=== PATIENT | male | born 1965 | race Caucasian/White ===

== ENCOUNTER 2019-06-17 21:33 | Inpatient (IN) | payer MEDICARE, MEDICAID ==
[~2019-06-17] VITALS: Ht 152.4 cm; Wt 75.7 kg
[2019-06-17 21:45] VITALS: BP 120/89
[2019-06-17] MEDS ORDERED: LISINOPRIL-HCT1 EACH PO (21:53)
[2019-06-17 22:25] LABS: ABSOLUTE EOSINOPHILS 0.1 thou/uL (0.0-0.7); ABSOLUTE MONOCYTES 0.3 thou/uL (0.0-1.2); ABSOLUTE NEUTROPHILS 2.1 thou/uL (1.6-8.1); BASOPHILS 0.6 %; EOSINOPHILS 1.5 %; HEMOGLOBIN 10.2 gm/dL (14.0-18.0); MCH 30.6 pg (26.0-34.0); MCV 90.2 fL (80.0-100.0); MONOCYTES 9.2 %; MPV 7.8 fl. (7.2-11.1); NUCLEATED RBCS 0 /100WBC; PLATELET COUNT* 106 thou/uL (150-400); POLYS 60.7 %; RBC 3.33 mil/uL (4.50-6.00); RDW-CV 17.3 % (10.5-14.5); WBC 3.5 thou/uL (4.0-11.0)
[2019-06-17 22:31] LABS: URINE BILIRUBIN NEGATIVE (Negative); URINE BLOOD NEGATIVE (Negative); URINE CLARITY CLEAR; URINE COLOR YELLOW; URINE GLUCOSE-RANDOM NEGATIVE (Negative); URINE KETONES NEGATIVE (Negative); URINE LEUKOCYTES-REFLEX 1+ (Negative); URINE NITRITE-REFLEX NEGATIVE (Negative); URINE PROTEIN NEGATIVE (Negative); URINE SPECIFIC GRAVITY <= 1.005 (1.005-1.030); URINE UROBILINOGEN 0.2 E.U./dl (0.2-1.0)
[2019-06-17 22:35] LABS: CALCIUM 9.3 mg/dL (8.5-10.1); CREATININE 0.8 mg/dL (0.6-1.3); POTASSIUM 4.1 mmol/L (3.5-5.1)
[2019-06-17 22:39] LABS: ALBUMIN 3.4 g/dL (3.4-5.0); AMP/METHAMP Negative (Negative); BARBITURATES Negative (Negative); BENZODIAZEPINES Negative (Negative); COCAINE Negative (Negative); METHADONE Negative (Negative); OPIATES Negative (Negative); PCP Negative (Negative); THC Negative (Negative); TOTAL BILIRUBIN 0.3 mg/dL (<0.1-1.0)
[2019-06-17 22:46] LABS: CASTS None Seen /LPF (None Seen); MUCUS None Seen strn/LPF (None Seen); SQUAMOUS 0-3 Few /LPF (0-3)
[2019-06-17 22:47] LABS: BACTERIA-REFLEX 1-9 Few /HPF (None Seen); CRYSTALS None Seen /LPF (None Seen); URINE RBC None Seen /HPF (0-2); URINE WBC-REFLEX 0-5 Rare /HPF (0-5)
[2019-06-18 03:56] VITALS: BP 102/60
--- NOTE | 2019-06-18 07:50 | NUR ---
GI RETURNED PHONE CALL. NO NEW ORDERS, KEEP PT NPO AT THIS TIME.
[2019-06-18 08:38] LABS: HEMATOCRIT 26.8 % (42.0-52.0)
[2019-06-18 08:45] LABS: CALCIUM 8.6 mg/dL (8.5-10.1); CREATININE 0.8 mg/dL (0.6-1.3); MAGNESIUM 1.8 mg/dL (1.8-2.4); POTASSIUM 4.2 mmol/L (3.5-5.1)
--- NOTE | 2019-06-18 12:01 | NUR ---
PT RECIEVED BY SANDY ABDALLA PREOP NURSE WITH BLOOD TRANSFUSING. PT STABLE WITH ALL VITAL SIGNS WITHIN NORMAL LIMITS. BLOOD TRANSFUSING AT 175ML/HR AND PT TOLERATING WELL. IV SITE PATENT. SANDY BUTLER ASSUMES TRANSFUSION AND VERBALIZES UNDERSTANDING OF REPORT.
[2019-06-18 12:07] VITALS: BP 124/66
[2019-06-18 16:35] LABS: HEMATOCRIT 30.3 % (42.0-52.0); HEMOGLOBIN 10.2 gm/dL (14.0-18.0)
[2019-06-18 16:48] LABS: APTT 24.5 Seconds (25.0-31.3); INR 1.1; PROTIME 10.9 Seconds (9.20-11.50)
--- NOTE | 2019-06-18 18:16 | EKG ---
[place] [address] ELECTROCARDIOGRAM REPORT Name: HARJEET PENA Room: [place] [address] ADM IN [facility]#: [id number] Admission: 06/18/19 Attend Phys: Jennifer Stokes Discharge: Date of : 69 Report #: [id number] THIS REPORT FOR: //name// [facility] ED Test Date: 2019-06-18 Test Time: 12:02:01 Pat Name: ANNARITESH JEAN Department: Room: [place] [address] Gender: M Scrap Dealer: : 1965 Requested By: Harjeet Welsh Order Number: [id number] MD: Kb Mckeon Measurements Intervals [place] Rate: 70 P: HI: QRS: 4 QRSD: 97 T: 62 QT: 356 QTc: 385 Interpretive Statements Atrial fibrillation Probable left ventricular hypertrophy, by voltage Anterior Q waves, possibly due to LVH No previous ECG available for comparison Electronically Signed On 06-18-2019 18:15:57 CDT by Kb Mckeon [email or web address] <ELECTRONICALLY SIGNED> By: Kb Mckeon MD, [facility] 06/18/19 181 01 01 Kb Mckeon MD, FAC /EPI
[2019-06-18 20:45] VITALS: BP 134/85
[2019-06-19] VITALS: BP 142/78
[2019-06-19 04:00] VITALS: BP 116/49
--- NOTE | 2019-06-19 06:04 | NUR ---
A&O X 4. VITALS STABLE. PT ON 1L O2 BY NC. PAIN CONTROLLED BY FENTANYL AND OXY IR. NO C/O NAUSEA OR VOMITING. IV FLUIDS RUNNING ORDERED. HOURLY ROUNDING COMPLETED. NO BM THIS SHIFT. WILL CONTINUE TO MONITOR.
[2019-06-19 08:00] VITALS: BP 136/79
[2019-06-19 08:52] LABS: HEMATOCRIT 28.6 % (42.0-52.0); HEMOGLOBIN 9.6 gm/dL (14.0-18.0); MCH 30.8 pg (26.0-34.0); MCHC 33.7 g/dL (28.0-37.0); MCV 91.4 fL (80.0-100.0); MPV 8.3 fl. (7.2-11.1); RBC 3.13 mil/uL (4.50-6.00); WBC 2.5 thou/uL (4.0-11.0)
[2019-06-19 09:06] LABS: ALBUMIN 2.9 g/dL (3.4-5.0); CALCIUM 8.4 mg/dL (8.5-10.1); CREATININE 0.7 mg/dL (0.6-1.3); MAGNESIUM 1.8 mg/dL (1.8-2.4); POTASSIUM 4.3 mmol/L (3.5-5.1)
[2019-06-19] MEDS ORDERED: SUBOXONE 8 MG-1 EAC3 PO (09:34)
[2019-06-19 14:33] VITALS: BP 116/71
[2019-06-19 17:36] VITALS: BP 143/82
--- NOTE | 2019-06-19 19:36 | NUR ---
PT VSS, AFIB ON TELE, A&OX4, PT HAS DISCOMFORT SWALLOWING BUT ADVANCED TO CARDIAC DIET. PT UP AD SAVAGE, POSSESSIONS AND CALL LIGHT WITHIN REACH, HOURLY ROUNDING PERFORMED.
[2019-06-19 20:00] VITALS: BP 142/87
[2019-06-19 23:05] LABS: HEPATITIS B SURFACE AG Negative (Negative)
[2019-06-20 00:34] VITALS: BP 98/57
[2019-06-20 04:00] VITALS: BP 143/88
[2019-06-20 04:17] LABS: ABSOLUTE LYMPHOCYTES 0.7 thou/uL (0.8-5.3); ABSOLUTE MONOCYTES 0.2 thou/uL (0.0-1.2); ABSOLUTE NEUTROPHILS 1.2 thou/uL (1.6-8.1); BASOPHILS 0.4 %; EOSINOPHILS 1.6 %; HEMATOCRIT 27.6 % (42.0-52.0); HEMOGLOBIN 9.2 gm/dL (14.0-18.0); LYMPHOCYTES 35.1 %; MCH 30.5 pg (26.0-34.0); MCHC 33.3 g/dL (28.0-37.0); MCV 91.8 fL (80.0-100.0); MONOCYTES 8.9 %; MPV 8.2 fl. (7.2-11.1); NUCLEATED RBCS 0 /100WBC; PLATELET COUNT* 70 thou/uL (150-400); RBC 3.01 mil/uL (4.50-6.00); RDW-CV 17.2 % (10.5-14.5); WBC 2.1 thou/uL (4.0-11.0)
[2019-06-20 04:53] LABS: CALCIUM 8.6 mg/dL (8.5-10.1); CREATININE 0.8 mg/dL (0.6-1.3); TOTAL BILIRUBIN 0.9 mg/dL (<0.1-1.0)
[2019-06-20 08:00] VITALS: BP 117/78
--- NOTE | 2019-06-20 13:04 | CON ---
[address] [address] CONSULTATION Name: NELLY PENA Room: [address] IN [facility]#: [id number] Admission: 06/18/19 Attend Phys: Jennifer Stokes Discharge: Date of : [birth year] Report #: [id number] THIS REPORT FOR: //name// CC: [facility]ON[facility] physician/PCP Santos Enriquez DATE OF SERVICE: 06/19/2019 HISTORY OF PRESENT ILLNESS: The patient is a 53-year-old male who presented with black stools and evidence of a recurrent upper GI bleeding. He has known esophageal varices and has had multiple GI bleeds. In this setting, he demonstrated atrial fibrillation with a moderate response. The patient has a number of additional problems which include hypertension. He is comfortable at present and remains in atrial fibrillation with a moderate ventricular response. PAST MEDICAL HISTORY: Remarkable for hepatitis C, hepatitis B, chronic opiate dependence. He has had prior spinal fusion and cholecystectomy. PHYSICAL EXAMINATION: GENERAL: Reveals a mildly sedated, middle-aged male in no acute distress. VITAL SIGNS: Blood pressure 130/70, pulse rate 74 and irregularly irregular, respirations are 18 per minute. CHEST: Clear. CARDIAC: Reveals an irregularly irregular rhythm at a moderate rate. ABDOMEN: Soft. EXTREMITIES: Well perfused and without edema. LABORATORY DATA: EKGs and rhythm strips demonstrate atrial fibrillation with a moderate ventricular response. IMPRESSION: 1. Atrial fibrillation. 2. Recurrent gastrointestinal bleeding. 3. Hepatitis B and C. 4. Opiate dependence. RECOMMENDATIONS: Current ventricular response is moderate and he does not require additional rate modulating agents. I would not recommend anticoagulation in this context given the black stools and [place] [address] CONSULTATION Name: NELLY PENA Room: [address] IN ..#: [id number] Admission: 06/18/19 Attend Phys: Jennifer Stokes Discharge: Date of : 69 Report #: [id number] Echocardiogram regarding the magnitude of structural heart disease with consideration of adding an antiarrhythmic agent to potentially revert him to a sinus mechanism. Would review the echocardiogram prior to consideration of same. <ELECTRONICALLY SIGNED> By: Olegario Lepe MD, FACC 06/20/19 1304 1137 [id number] Lepe MD, FACC /nt
[2019-06-20 15:31] VITALS: BP 136/67
--- NOTE | 2019-06-20 19:45 | NUR ---
RECEIVED REPORT FROM BRANDI DELGADO. ASSUMED CARE OF PT AROUND 0730. PT A&O X4. VSS, HR DORETHA DOWN INTO 40'S AT TIMES. PUDDLER PILE DRIVING IN PLACE TRACING AFIB THIS SHIFT. AM ASSESSMENT AND VITALS COMPLETED CHARTED. PT ABLE TO EAT MORE FOOD AT EACH MEAL, TOLERATING DIET. NO SIGNS OF BLEEDING THIS SHIFT. PT DENIED PAIN TODAY. PT UP AD SAVAGE, VOIDING WITHOUT ISSUE. PT HOPEFUL TO GO HOME TOMORROW. MEDS PER EMAR. IV'S INTACT. PT CURRENTLY WATCHING TV IN BED. CALL LIGHT IS WITHIN REACH. HOURLY ROUNDING PERFORMED. LOW FALL RISK PRECAUTIONS IN PLACE.
[2019-06-20 20:00] VITALS: BP 139/91
[2019-06-20 22:10] LABS: HEPATITIS B SURFACE AG Negative (Negative)
[2019-06-21 00:31] VITALS: BP 118/78
[2019-06-21 04:00] VITALS: BP 117/60
--- NOTE | 2019-06-21 06:53 | NUR ---
PT RESTED COMFORTABLY T/O NIGHT WITHOUT COMPLAINT. TELE SHOWS AFIB. PT APPETITE INCREASED OVER PAST DAY .PT PROGRESSING TOWARDS GOALS. MEDS GIVEN PER EMAR.
[2019-06-21 07:34] LABS: HEMATOCRIT 27.8 % (42.0-52.0); HEMOGLOBIN 9.3 gm/dL (14.0-18.0); MCH 30.8 pg (26.0-34.0); MCHC 33.6 g/dL (28.0-37.0); MCV 91.5 fL (80.0-100.0); NUCLEATED RBCS 0 /100WBC; PLATELET COUNT* 79 thou/uL (150-400); RBC 3.03 mil/uL (4.50-6.00); RDW-CV 16.7 % (10.5-14.5)
[2019-06-21 07:43] LABS: WBC 1.9 thou/uL (4.0-11.0)
[2019-06-21 07:49] LABS: CREATININE 0.9 mg/dL (0.6-1.3); POTASSIUM 3.5 mmol/L (3.5-5.1)
[2019-06-21 08:05] VITALS: BP 117/54
[2019-06-21 08:26] LABS: ABSOLUTE LYMPHOCYTES 0.6 thou/uL (0.8-5.3); ABSOLUTE MONOCYTES 0.2 thou/uL (0.0-1.2); ABSOLUTE NEUTROPHILS 1.2 thou/uL (1.6-8.1); PLATELET ESTIMATE DECREASED
[2019-06-21 08:27] LABS: ANISOCYTOSIS 1+; POIKILOCYTOSIS 1+
--- NOTE | 2019-06-21 09:33 | NUR ---
ASSUMED CARE OF PT THIS AM AROUND 07- HEALTH SCIENCES MANAGER IN PLACE ORDERED, TRACING A-FIB- UPON ASSESSMENT PT NOTED TO BE RESTING IN BED, EYES CLOSED- PT ARROUSABLE BUT, SLEEPY THIS AM- PT A&O X4- CONTINENT OF B/B- UP AD-SAVAGE IN ROOM, STEADY GAIT NOTED- LCTA LEFT LOBES, ABSENT IN RIGHT LOBES- RESP EVEN AND UN-LABORED- VSS, O2 SAT 95% ON RA- ABD SOFT/ROUND/NON-TENDER, BS X4 QUADS- LAST BM REPORTED 06/20/05/13- IV NOTED TO LEFT AND RIGHT FA INTACT AND SL- CALL LIGHT AND PERSONAL BELONGINGS WITH IN REACH- PT DENIES ANY C/O PAIN/DISCOMFORT AT THIS TIME- PT MAKES NEEDS KNOWN- ALL NEEDS MET AT THIS TIME-WCTM
[2019-06-21 11:07] VITALS: BP 117/54
[2019-06-21] MEDS ORDERED: CARAFATE 11 GM/10 M1 PO (11:42)
[2019-06-21] MEDS ORDERED: PROTONIX40 M1 PO (11:42)
[2019-06-21] MEDS ORDERED: INDERAL 20 MG T20 M1 PO (11:42)
[2019-06-21] MEDS ORDERED: SLOW FE142 MG PO (11:42)
--- NOTE | 2019-06-21 12:00 | NUR ---
MET WITH PT TO DISCUSS HOME SITUATION/DC PLANNING. PT LIVES WITH HIS BROTHER AND COLLIN, JUST MOVED HERE FROM [place]. HE IS NORMALLY INDEPENDENT AND ACTIVE, USES NO EQUIPMENT. HE HAS NOT ESTABLISHED IW[facility] A PCP, LIST GIVEN WITH INFO. PT ALSO INTERESTED IN DPOA, GAVE INFO AND MADE AWARE THAT IT NEEDS NOTARIZED. PT TO CALL IF WANTS TO COMPLETE.
[2019-06-21 12:18] VITALS: BP 138/84
[2019-06-21 16:29] VITALS: BP 141/81
--- NOTE | 2019-06-21 17:22 | 2DMMODE ---
[place] [address] 2 D/M-MODE ECHOCARDIOGRAM Name: NELLY PENA Room: [address] IN [facility]#: [id number] Admission: 06/18/19 Attend Phys: Santos Enriquez Discharge: Date of : 69 Date of Service: 06/21/19 1722 Report #: [id number] THIS REPORT FOR: //name// APPROVED REPORT Study performed: 06/21/2019 11:32:58 EXAM: Comprehensive 2D, Doppler, and color-flow Echocardiogram Patient Location: In-Patient Room #: [facility] Status: routine BSA: 1.98 HR: 70 bpm BP: 117/54 mmHg Rhythm: Atrial Fibrillation Other Information Study Quality: Good Indications Atrial Fibrillation 2D Dimensions IVSd: 17.61 (7-11mm) LVOT Diam: 22.85 (18-24mm) LVDd: 48.94 mm PWd: 14.96 (7-11mm) Ascending Ao: 39.69 (22-36mm) LVDs: 31.49 (25-40mm) Aortic Root: 40.89 mm Volumes Left Atrial Volume (Systole) LA ESV Index: 71.00 mL/m2 Aortic Valve AoV Peak Jhon.: 1.41 m/s AO Peak Gr.: 7.90 mmHg LVOT Max P.82 mmHg AO Mean Gr.: 4.37 mmHg LVOT Mean P.37 mmHg LVOT Max V: 1.31 m/s AO V2 VTI: 26.86 cm LVOT Mean V: 0.83 m/s ASHER (VTI): 3.97 cm2 LVOT V1 VTI: 26.04 cm AI [place]: 1.70 m/s2 AI PHT: 636.11 ms TDI Medial E' Jhon.: 0.07 m/[place] [address] 2 D/M-MODE ECHOCARDIOGRAM Name: NELLY PENA Room: [address] IN [facility]#: [id number] Admission: 06/18/19 Attend Phys: Santos Enriquez Discharge: Date of : 69 Date of Service: 06/21/19 1722 Report #: [id number] Lateral E' Jhon.: 0.17 m/s Pulmonary Valve PV Peak Jhon.: 1.24 m/s PV Peak Gr.: 6.16 mmHg Tricuspid Valve RAP Estimate: 5.00 mmHg TR Peak Gr.: 35.87 mmHg RVSP: 41.00 mmHg PA Pressure: 41.00 mmHg Left Ventricle The left ventricle is normal size. There is normal LV segmental wall motion. Moderate concentric left ventricular hypertrophy. Left ventricular systolic function is normal. The left ventricular ejection fraction is within the normal range. LVEF is 55-60%. This study is not technically sufficient to allow evaluation of the LV diastolic function due to atrial fibrillation. Right Ventricle The right ventricle is normal size. The right ventricular systolic function is normal. Atria Left atrium is moderately dilated. The right atrium size is normal. Aortic Valve Mild aortic valve sclerosis. Mild aortic regurgitation. There is no aortic valvular stenosis. Mitral Valve The mitral valve is normal in structure. Moderate mitral regurgitation with an eccentric jet. No evidence of mitral valve stenosis. Mild prolapse of the posterior mitral valve leaflet. Tricuspid Valve The tricuspid valve is normal in structure. Mild tricuspid regurgitation. Moderate pulmonary hypertension. Pulmonic Valve The pulmonary valve is normal in structure. Mild pulmonic regurgitation. Great Vessels The aortic root is normal in size. IVC [place] [address] 2 D/M-MODE ECHOCARDIOGRAM Name: NELLY PENA Room: [address]#: [id number] Admission: 06/18/19 Attend Phys: Santos Enriquez Discharge: Date of : 69 Date of Service: 06/21/19 1722 Report #: [id number] collapses >50% with inspiration. Pericardium There is no pericardial effusion. <Conclusion> The left ventricle is normal size. Moderate concentric left ventricular hypertrophy. Left ventricular systolic function is normal. The left ventricular ejection fraction is within the normal range. LVEF is 55-60%. This study is not technically sufficient to allow evaluation of the LV diastolic function due to atrial fibrillation. The right ventricle is normal size. Left atrium is moderately dilated. The right atrium size is normal. Mild aortic valve sclerosis. Mild aortic regurgitation. There is no aortic valvular stenosis. The mitral valve is normal in structure. Moderate mitral regurgitation with an eccentric jet. No evidence of mitral valve stenosis. The tricuspid valve is normal in structure. Mild tricuspid regurgitation. Moderate pulmonary hypertension. IVC is normal in size and collapses >50% with inspiration. There is no pericardial effusion. There is normal LV segmental wall motion. Mild prolapse of the posterior mitral valve leaflet. <ELECTRONICALLY SIGNED> By: Olegario Lepe MD, FACC 06/21/191721 21 21 Olegario Lepe MD, FACC /INF
[2019-06-22 19:10] LABS: HEP B IU/mL HBV DNA not detected IU/mL (())
--- NOTE | 2019-06-26 13:09 | CON ---
[address] [address] CONSULTATION Name: NELLY PENA Room: [address] IN ..#: [id number] Admission: 06/18/19 Attend Phys: Jennifer Stokes Discharge: 06/21/19 Date of : 69 Report #: [id number] THIS REPORT FOR: //name// CC: [facility] physician/PCP Santos Enriquez DICTATED BY: Ruby Bang [facility] DATE OF SERVICE: 06/18/2019 Please send a copy to his PCP, he does not have one as of yet since moving to the area this past year. Please note at the time of this dictation, the patient was seen and physically examined by myself. REASON FOR CONSULTATION: Melanotic stool. HISTORY OF PRESENT ILLNESS: This is a 53-year-old male who started having black tarry stools noting yesterday. He states he had increased fatigue with this. He states normally this is the sixth episode he has had with his last episode being in 10/2017, which was in [place] at that time. He has had previous bouts where he has had upper scopes done and they have not been able to find anything. He denies any recent use of any NSAIDs. He had taken them off and on before his last EGD, but he has not had any since that time since 10/2017. He denies any nausea or vomiting at this time or any abdominal pain. He states he does not have any issues with swallowing, no fever or chills. He states normally his bowels move daily, soft and formed. He has not had an increase in the amount of stooling as of yet. He just noticed the black tarry stool yesterday prior to coming in. He states normally he usually waits more than a day or two before coming in; however, this time, he came in once he first started seeing it happened. We will need to obtain those records from [place] as well. ALLERGIES: No known drug allergies. MEDICATIONS FROM HOME: None. PAST MEDICAL HISTORY: Recurrent gastrointestinal bleeds in the past with the last one being in 10/2017. He has chronic opioid dependency and history of hepatitis C and B. PAST SURGICAL HISTORY: Cholecystectomy, pneumonectomy, spinal fusion. FAMILY HISTORY: Negative for any GI [place] [address] CONSULTATION Name: NELLY PENA Room: [address]#: [id number] Admission: 06/18/19 Attend Phys: Jennifer Stokes Discharge: 06/21/19 Date of : 69 Report #: [id number] SOCIAL HISTORY: He moved here to take care of his mom from [place]. He has a brother that lives here and decided to stay. He denies any alcohol use. He denies any recreational use of any drugs. He does smoke about a half pack per day. REVIEW OF SYSTEMS: Twelve-point review of systems is essentially negative except what is mentioned in the HPI. PHYSICAL EXAMINATION: VITAL SIGNS: Temperature 36.8, pulse 68, respirations 16, blood pressure 118/68. HEART: Regular rate and rhythm. LUNGS: Diminished, but clear. LABORATORY DATA: Hemoglobin on admission was 10.2, hemoglobin is 9. BUN on admission was 25, he has 22. GFR is 102. CT of the abdomen and pelvis shows hepatomegaly with enlarged portal veins consistent with portal hypertension, hepatic cirrhosis likely present. 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 Also please note LFTs; total bilirubin 0.3, alkaline phosphatase is 93, ALT 74, AST 71. IMPRESSION: 1. Melena. 2. History of gastrointestinal bleeds in the past. 3. History of hepatitis C and hepatitis B. 4. Portal hypertension, likely cirrhosis. 5. Chronic narcotic dependency. PLAN: 1. EGD today with Dr. Rodriguez. 2. Obtain his records from outlying facility. 3. We will obtain labs, acute hepatitis panel. 4. Further recommendations to be made once the patient has been seen. Thank you for allowing us to participate in this patient's care. Please do not hesitate to call with any questions in regard to this consult. <ELECTRONICALLY SIGNED> By: Alfonso Rodriguez DO 06/26/19 1309 1156 [id number] Rodriguez DO /nt
== END 2019-06-21 18:02 | disposition home or self-care (01) | DRG 441 ==
LOC: M.ERS 21:33 → M.TBA-ER 06-18 01:05 → M.2W 06-18 18:59
PROVIDERS: Internal Medicine; Internal Medicine Gastroenterology; Nurse Practitioner Adult Health; Personal Emergency Response Attendant; ADMIT Internal Medicine
PROC: 30233N1 Transfusion of Nonautologous Red Blood Cells into Peripheral Vein, Percutaneous Approach (ICD-10-PCS; principal; 2019-06-18)
PROC: 06L38CZ Occlusion of Esophageal Vein with Extraluminal Device, Via Natural or Artificial Opening Endoscopic (ICD-10-PCS; principal; 2019-06-18)
DX: K76.6 Portal hypertension (principal); I85.11 Secondary esophageal varices with bleeding; R57.8 Other shock; K29.71 Gastritis, unspecified, with bleeding; F11.20 Opioid dependence, uncomplicated; B19.10 Unspecified viral hepatitis B without hepatic coma; I82.891 Chronic embolism and thrombosis of other specified veins; D61.818 Other pancytopenia; F17.210 Nicotine dependence, cigarettes, uncomplicated; I48.91 Unspecified atrial fibrillation; B19.20 Unspecified viral hepatitis C without hepatic coma; I95.9 Hypotension, unspecified; K75.81 Nonalcoholic steatohepatitis (NASH); R16.1 Splenomegaly, not elsewhere classified; K74.60 Unspecified cirrhosis of liver; K31.89 Other diseases of stomach and duodenum; Z79.899 Other long term (current) drug therapy; Z90.49 Acquired absence of other specified parts of digestive tract; Z98.1 Arthrodesis status; Z86.19 Personal history of other infectious and parasitic diseases